=== PATIENT | male | born 1965 | race Caucasian/White ===

== ENCOUNTER 2018-07-25 00:50 | Emergency (ER) | payer OTHER, SELFPAY ==
[2018-07-25 00:51] VITALS: BP 144/86; PULSE 90; RESP 20; TEMP 36.8; O2SAT 100; BMI 31.8
--- NOTE | 2018-07-25 01:08 | EKG12_ITS ---
Test Reason : CP Blood Pressure : / mmHG Vent. Rate : 090 BPM Atrial Rate : 090 BPM P-R Int : 178 ms QRS Dur : 090 ms QT Int : 378 ms P-R-T Axes : 056 044 017 degrees QTc Int : 462 ms Normal sinus rhythm Normal ECG Confirmed by CURTIS LAMBERT, KARLY ([id number]), scientific publications editor PASHA CUENCA ([id number]) on 07/28/2018 9:37:10 AM Referred By: FABIENNE Confirmed By:KARLY ACEVEDO MD
--- NOTE | 2018-07-25 01:08 | RAD_ITS ---
STUDY: X-RAY CHEST REASON FOR EXAM: Male, 52 years old. Chest pain and pressure TECHNIQUE: 2 views COMPARISON: None. FINDINGS: The central pulmonary vascular markings are prominent bilaterally. Pulmonary hypertension is suspected. The heart is slightly enlarged. An ICD is in place. There are no pleural effusions. The lungs are clear. Normal visualized thoracic spine. Normal visualized ribs, clavicles, and shoulders. There is no demonstrated abnormality of the visualized soft tissue structures of the upper abdomen. RAD/Chest PA and Lateral IMPRESSION: No acute findings in the lungs. Suspicion of pulmonary hypertension Electronically Signed: Bruce Rossi MD at 1:43 EST Tel , Service support ,
[2018-07-25 01:11] VITALS: O2SAT 96
--- NOTE | 2018-07-25 01:11 | ED.DCSUM_ITS ---
- ER Visit Summary Date of Service: 07/25/18 Chief Complaint: Chest pressure History of Present Illness: The patient is a 52 M who presents for intermittent chest pressure for 2 weeks. Patient states he has been having episodes that last 20-30 minutes, described as a pressure across the entire chest without radiation into the arms, back, abdomen, neck. Patient's listened while he was having an episode tonight, and noted that his heart sounded irregular, like heart beats on top of another one. Patient states he has felt generally fatigued and weak for the last 2 weeks. He has had tremulousness and family note he has lost weight. He has no other complaints. He does have a history of coronary artery disease and myocardial infarction, with an ICD and pacer implanted from [employer]. He takes aspirin and Effient daily. No tobacco use or heavy alcohol use. Patient is currently asymptomatic. Physical Examination: Vital signs: afebrile, hemodynamically stable, no hypoxia on room air General: well nourished, well developed, in no distress Skin: warm, dry, no rash, no pallor HEENT: normocephalic and atraumatic; PERRL, EOMI, moist mucous membranes Cardiovascular: regular rate and rhythm without murmurs, no peripheral edema, 2+ pulses all distal extremities Respiratory: No increased work of breathing, lungs are clear to auscultation bilaterally, no rales, rhonchi or wheezing Abdominal: Abdomen is soft, nontender with normoactive bowel sounds, no guarding or rebound, no masses MSK: Moves all extremities, no deformities, normal strength Neuro: Awake and alert, oriented ?4. No facial droop, sensation and motor function intact and symmetric Test Results: Abnormal Lab Results 07/25/18 07/25/18 07/25/18 00:58 00:58 00:58 WBC 6.2 RBC 4.25 L Hgb 12.6 L Hct 38.1 L MCV 89.6 MCH 29.6 MCHC 33.1 RDW 12.3 RDW Differential 39.5 Plt Count 240 MPV 10.8 Immature Gran % (Auto) 0.200 Neut % (Auto) 58.1 Lymph % (Auto) 25.6 [place] % (Auto) 13.5 H Eos % (Auto) 2.3 Baso % (Auto) 0.3 Absolute Neuts (auto) 3.6 Absolute Lymphs (auto) 1.58 Total Counted Not Reportable PT 15.0 H INR 1.2 APTT 29.7 Sodium 139 Potassium 3.8 Chloride 106 Carbon Dioxide 26.0 Anion Gap 7 BUN 22 H Creatinine 1.18 Estim Creat Clear Calc 77.99 Est GFR (MDRD) Af Amer 83 Est GFR (MDRD) Non-Af 69 BUN/Creatinine Ratio 18.6 Glucose 106 Calcium 8.6 Magnesium 2.0 Troponin I < 0.015 TSH < 0.01 L Free T4 07/25/18 00:58 WBC RBC Hgb Hct MCV MCH MCHC RDW RDW Differential Plt Count MPV Immature Gran % (Auto) Neut % (Auto) Lymph % (Auto) [place] % (Auto) Eos % (Auto) Baso % (Auto) Absolute Neuts (auto) Absolute Lymphs (auto) Total Counted PT INR APTT Sodium Potassium Chloride Carbon Dioxide Anion Gap BUN Creatinine Estim Creat Clear Calc Est GFR (MDRD) Af Amer Est GFR (MDRD) Non-Af BUN/Creatinine Ratio Glucose Calcium Magnesium Troponin I TSH Free T4 5.69 H Clinical Impression(s) from Imaging Studies Chest X-Ray 07/25/18 01:08 IMPRESSION: No acute findings in the lungs. Suspicion of pulmonary hypertension Electronically Signed: Bruce Rossi MD at 1:43 EST Tel , Service support , Medications Given Discontinued Medications Aspirin (Aspirin, Baby) 324 mg PO X1 STA Stop: 07/25/18 01:09 Last Admin: 07/25/18 01:16 Dose: 324 mg Sodium Chloride () 1,000 mls @ 1,000 mls/hr IV .Q1H ONE Stop: 07/25/18 02:07 Last Admin: 07/25/18 01:17 Dose: 1,000 mls/hr Emergency Department Course and Treatment: Patient was given dose of aspirin. He is currently asymptomatic. Pacer/ICD interrogation was performed and showed episodes of nonsustained V. tach below the threshold of ICD firing. These results are consistent with patient's baseline condition, and there are no changes from his prior interrogation in June. Patient's troponin was within normal limits. No electrolyte or renal derangements, significant anemia or leukocytosis. TSH was checked given the complaints of fatigue, weakness and the description of patient's irregular heartbeat during these episodes of him feeling his chest discomfort. TSH was less than 0.01. A free T4 was checked and was significantly elevated at 5.69. Patient's EKG showed a sinus rhythm without ischemic changes. Patient had no ectopy noted during his workup and remained asymptomatic the whole time. Patient's symptoms sound consistent with palpitations, and this in conjunction with his other symptoms sounds consistent with hyperthyroidism. Patient is to follow-up within 1 week with his primary care doctor for reevaluation and further workup of hyperthyroidism. Patient is on amiodarone, and we discussed that he may need to follow-up with his technology administrator as well. Patient was minimal to this plan and was discharged home with return precautions. Treatment Plan: [] Disposition: [] Impression: Hyperthyroidism This note was generated with [employer] dictation software. It may contain incorrect words, spelling, and punctuation that were not noted in review of the chart prior to signing ED Disposition - Plan for ED Patient: Disposition: Home or Assisted Living Chief Complaint: Chest Pain Instructions: ED Hyperthyroidism, ED Palpitations Referrals: Clark Workman MD [Primary Care Provider] - 3-5 Days Additional Instructions: Your thyroid hormone (T4) is high, and your thyroid stimulating hormone (TSH) is low. This indicates that you have hyperthyroidism, which may be causing you to have palpitations, weight loss, fatigue, weakness and jitteriness. Please follow-up with your family doctor as soon as possible for further evaluation of your thyroid. You may also need to follow-up with your technology administrator to see if your amiodarone may be contributing to the high thyroid function. If you have any further concerns, please return to the emergency department immediately for another evaluation.
[2018-07-25] MEDS: Aspirin 81 MG TAB.CHEW 324 MG PO (01:16)
[2018-07-25] MEDS: 0.9% Normal Saline 1,000 ML 1000 ML IV (01:17)
[2018-07-25 01:19] LABS: Absolute Lymphocyte Count 1.58 X10^3/ul (0.83-4.51); Absolute Neutrophil Count 3.6 X10^3/uL (2.0-7.7); Basophil# 0.02 X10^3/uL; Basophil% 0.3 % (0-1); Eosinophil# 0.14 X10^3/uL; Eosinophils% 2.3 % (0-5); Hematocrit 38.1 % (40-54); Hemoglobin 12.6 g/dl (13.0-16.5); Lymphocyte # 1.58 X10^3/ul (4.0); Lymphocyte % 25.6 % (19-41); Mean Corp Hgb Conc 33.1 g/gl (32-36); Mean Corpuscular Hgb 29.6 pg (27.0-32.0); Mean Corpuscular Volume 89.6 fL (80-94); Mean Platelet Vol. 10.8 fl (6.2-12.0); Monocyte# 0.83 X10^3/uL; Monocyte% 13.5 % (0-10); Neutrophil # 3.59 X10^3/uL (2.7-7.7); Neutrophil % 58.1 % (47-70); POSITIVE COUNT NO; POSITIVE DIFFERENTIAL NO; POSITIVE MORPHOLOGY NO; Platelet Count 240 K/mm3 (150-450); RBC Distribution Width CV 12.3 % (11.6-14.6); RBC Distribution Width SD 39.5 fl (35.1-43.9); Red Blood Count 4.25 M/mm3 (4.6-6.2); White Blood Count 6.2 K/mm3 (4.4-11.0)
[2018-07-25 01:21] LABS: International Normalized Ratio 1.2
[2018-07-25 01:22] LABS: Partial Thromboplast Time 29.7 Seconds (24.1-36.2)
[2018-07-25 01:55] VITALS: BP 117/69; PULSE 79; RESP 16; O2SAT 97
[2018-07-25 02:24] LABS: Anion Gap 7 (5-15); BUN 22 mg/dL (7-18); BUN/Creat Ratio 18.6 RATIO (10-20); Calcium,Total 8.6 mg/dL (8.5-10.1); Chloride 106 mmol/L (98-107); Creatinine, Serum 1.18 mg/dL (0.70-1.30); EST Glomerular Filtration Rate 69 mL/min (>60); Est Glom Filt Rate - Afr Amer 83 mL/min (>60); Estimated Creatinine Clearance 77.99 ml/min; Glucose 106 mg/dL (74-106); Potassium 3.8 mmol/L (3.5-5.1); Sodium Level 139 mmol/L (136-145); Thyroid Stim Hormone (TSH) < 0.01 uIU/mL (0.358-3.74)
[2018-07-25 02:37] VITALS: BP 113/70; PULSE 76; RESP 16; O2SAT 94
--- NOTE | 2018-07-25 02:51 | ED.RN ---
[facility] FOR REPORT INFORMATION
[2018-07-25 03:00] LABS: T4 Free Direct 5.69 ng/dL (0.76-1.46)
[2018-07-25 03:05] VITALS: BP 111/76; PULSE 74; RESP 16; O2SAT 94
--- NOTE | 2018-07-25 03:29 | PCM.HP.STD ---
Problem List (1) S/P implantation of automatic cardioverter/defibrillator (AICD) Status: Chronic (2) CAD (coronary artery disease) Status: Chronic Qualifiers: Coronary Disease-Associated Artery/Lesion type: unspecified vessel or lesion type [place] vs. transplanted heart: unspecified whether [place] or transplanted heart Associated angina: angina presence unspecified Qualified Code(s): I25.10 - Atherosclerotic heart disease of [place] coronary artery without angina pectoris (3) HLD (hyperlipidemia) Status: Chronic Qualifiers: Hyperlipidemia type: unspecified Qualified Code(s): E78.5 - Hyperlipidemia, unspecified (4) History of [place] (myocardial infarction) Status: Chronic (5) HTN (hypertension) Status: Chronic Qualifiers: Hypertension type: essential hypertension Qualified Code(s): I10 - Essential (primary) hypertension (6) Status cardiac pacemaker Status: Chronic (7) Chest pain Status: Acute Qualifiers: Chest pain type: unspecified Qualified Code(s): R07.9 - Chest pain, unspecified History of Present Illness Date of Admission: 07/25/18 Chief Complaint: Chest pain The patient is a 52 year old M [] Past Medical History Past Medical History (Chronic Problems): Chronic Problems CAD (coronary artery disease) (Chronic) HLD (hyperlipidemia) (Chronic) History of [place] (myocardial infarction) (Chronic) HTN (hypertension) (Chronic) Status cardiac pacemaker (Chronic) S/P implantation of automatic cardioverter/defibrillator (AICD) (Chronic) Allergies Penicillins Allergy (Verified 07/25/18 00:57) Rash Home Medications: Ambulatory Orders Medication Instructions Recorded Amiodarone HCl 200 mg PO DAILY 07/03/16 Aspirin E.C. [Ecotrin] 81 mg PO DAILY@0800 07/03/16 Atorvastatin Calcium [Lipitor] 40 mg PO QHS 07/03/16 Flaxseed Oil [[place]-3 Flaxseed Oil] 1,000 mg PO DAILY 07/03/16 Multivitamins,Therapeutic 1 tablet PO DAILY 07/03/16 [Multivitamin] [place]-3 Fatty Acids/Fish Oil [Fish 1 each PO DAILY 07/03/16 Oil 1,000 mg Capsule] Prasugrel Hydrochloride [Effient] 10 mg PO DAILY 07/03/16 Smoking Status: Never smoker Patient Problems: Active and Suspected Problems Chest pain (Acute) - Physical Exam Vital Signs Temp Pulse Resp BP Pulse Ox 98.2 F 74 16 111/76 94 07/25/18 00:51 07/25/18 03:05 07/25/18 03:05 07/25/18 03:05 07/25/18 03:05 Oxygen Delivery Method Room Air Weight: 228 lb 2.855 oz Body Mass Index (BMI) 31.8 Laboratory Tests Past 24 Hrs 07/25/18 07/25/18 07/25/18 00:58 00:58 00:58 WBC 6.2 RBC 4.25 L Hgb 12.6 L Hct 38.1 L MCV 89.6 MCH 29.6 MCHC 33.1 RDW 12.3 RDW Differential 39.5 Plt Count 240 MPV 10.8 Immature Gran % (Auto) 0.200 Neut % (Auto) 58.1 Lymph % (Auto) 25.6 [place] % (Auto) 13.5 H Eos % (Auto) 2.3 Baso % (Auto) 0.3 Absolute Neuts (auto) 3.6 Absolute Lymphs (auto) 1.58 Total Counted Not Reportable PT 15.0 H INR 1.2 APTT 29.7 Sodium 139 Potassium 3.8 Chloride 106 Carbon Dioxide 26.0 Anion Gap 7 BUN 22 H Creatinine 1.18 Estim Creat Clear Calc 77.99 Est GFR (MDRD) Af Amer 83 Est GFR (MDRD) Non-Af 69 BUN/Creatinine Ratio 18.6 Glucose 106 Calcium 8.6 Magnesium 2.0 Troponin I < 0.015 TSH < 0.01 L Free T4 07/25/18 00:58 WBC RBC Hgb Hct MCV MCH MCHC RDW RDW Differential Plt Count MPV Immature Gran % (Auto) Neut % (Auto) Lymph % (Auto) [place] % (Auto) Eos % (Auto) Baso % (Auto) Absolute Neuts (auto) Absolute Lymphs (auto) Total Counted PT INR APTT Sodium Potassium Chloride Carbon Dioxide Anion Gap BUN Creatinine Estim Creat Clear Calc Est GFR (MDRD) Af Amer Est GFR (MDRD) Non-Af BUN/Creatinine Ratio Glucose Calcium Magnesium Troponin I TSH Free T4 5.69 H Assessment/Plan All Active Problems Chest pain (Acute) Screening for colon cancer (Acute)
--- NOTE | 2018-07-25 03:39 | HP.PCM_ITS ---
Problem List (1) S/P implantation of automatic cardioverter/defibrillator (AICD) Status: Chronic (2) CAD (coronary artery disease) Status: Chronic Qualifiers: Coronary Disease-Associated Artery/Lesion type: unspecified vessel or lesion type [place] vs. transplanted heart: unspecified whether [place] or transplanted heart Associated angina: angina presence unspecified Qualified Code(s): I25.10 - Atherosclerotic heart disease of [place] coronary artery without angina pectoris (3) HLD (hyperlipidemia) Status: Chronic Qualifiers: Hyperlipidemia type: unspecified Qualified Code(s): E78.5 - Hyperlipidemia, unspecified (4) History of [place] (myocardial infarction) Status: Chronic (5) HTN (hypertension) Status: Chronic Qualifiers: Hypertension type: essential hypertension Qualified Code(s): I10 - Essential (primary) hypertension (6) Status cardiac pacemaker Status: Chronic (7) Chest pain Status: Acute Qualifiers: Chest pain type: unspecified Qualified Code(s): R07.9 - Chest pain, unspecified History of Present Illness Date of Admission: 07/25/18 Chief Complaint: Chest pain The patient is a 52 year old M [] Past Medical History Past Medical History (Chronic Problems): Chronic Problems CAD (coronary artery disease) (Chronic) HLD (hyperlipidemia) (Chronic) History of [place] (myocardial infarction) (Chronic) HTN (hypertension) (Chronic) Status cardiac pacemaker (Chronic) S/P implantation of automatic cardioverter/defibrillator (AICD) (Chronic) Allergies Penicillins Allergy (Verified 07/25/18 00:57) Rash Home Medications: Ambulatory Orders Medication Instructions Recorded Amiodarone HCl 200 mg PO DAILY 07/03/16 Aspirin E.C. [Ecotrin] 81 mg PO DAILY@0800 07/03/16 Atorvastatin Calcium [Lipitor] 40 mg PO QHS 07/03/16 Flaxseed Oil [[place]-3 Flaxseed Oil] 1,000 mg PO DAILY 07/03/16 Multivitamins,Therapeutic 1 tablet PO DAILY 07/03/16 [Multivitamin] [place]-3 Fatty Acids/Fish Oil [Fish 1 each PO DAILY 07/03/16 Oil 1,000 mg Capsule] Prasugrel Hydrochloride [Effient] 10 mg PO DAILY 07/03/16 Smoking Status: Never smoker Patient Problems: Active and Suspected Problems Chest pain (Acute) - Physical Exam Vital Signs Temp Pulse Resp BP Pulse Ox 98.2 F 74 16 111/76 94 07/25/18 00:51 07/25/18 03:05 07/25/18 03:05 07/25/18 03:05 07/25/18 03:05 Oxygen Delivery Method Room Air Weight: 228 lb 2.855 oz Body Mass Index (BMI) 31.8 Laboratory Tests Past 24 Hrs 07/25/18 07/25/18 07/25/18 00:58 00:58 00:58 WBC 6.2 RBC 4.25 L Hgb 12.6 L Hct 38.1 L MCV 89.6 MCH 29.6 MCHC 33.1 RDW 12.3 RDW Differential 39.5 Plt Count 240 MPV 10.8 Immature Gran % (Auto) 0.200 Neut % (Auto) 58.1 Lymph % (Auto) 25.6 [place] % (Auto) 13.5 H Eos % (Auto) 2.3 Baso % (Auto) 0.3 Absolute Neuts (auto) 3.6 Absolute Lymphs (auto) 1.58 Total Counted Not Reportable PT 15.0 H INR 1.2 APTT 29.7 Sodium 139 Potassium 3.8 Chloride 106 Carbon Dioxide 26.0 Anion Gap 7 BUN 22 H Creatinine 1.18 Estim Creat Clear Calc 77.99 Est GFR (MDRD) Af Amer 83 Est GFR (MDRD) Non-Af 69 BUN/Creatinine Ratio 18.6 Glucose 106 Calcium 8.6 Magnesium 2.0 Troponin I < 0.015 TSH < 0.01 L Free T4 07/25/18 00:58 WBC RBC Hgb Hct MCV MCH MCHC RDW RDW Differential Plt Count MPV Immature Gran % (Auto) Neut % (Auto) Lymph % (Auto) [place] % (Auto) Eos % (Auto) Baso % (Auto) Absolute Neuts (auto) Absolute Lymphs (auto) Total Counted PT INR APTT Sodium Potassium Chloride Carbon Dioxide Anion Gap BUN Creatinine Estim Creat Clear Calc Est GFR (MDRD) Af Amer Est GFR (MDRD) Non-Af BUN/Creatinine Ratio Glucose Calcium Magnesium Troponin I TSH Free T4 5.69 H Assessment/Plan All Active Problems Chest pain (Acute) Screening for colon cancer (Acute)
--- NOTE | 2018-07-25 03:53 | ED.DEP ---
ED Disposition - Plan for ED Patient: Disposition: Home or Assisted Living Chief Complaint: Chest Pain Instructions: ED Hyperthyroidism, ED Palpitations Referrals: Clark Workman MD [Primary Care Provider] - 3-5 Days Additional Instructions: Your thyroid hormone (T4) is high, and your thyroid stimulating hormone (TSH) is low. This indicates that you have hyperthyroidism, which may be causing you to have palpitations, weight loss, fatigue, weakness and jitteriness. Please follow-up with your family doctor as soon as possible for further evaluation of your thyroid. You may also need to follow-up with your personal financial counselor to see if your amiodarone may be contributing to the high thyroid function. If you have any further concerns, please return to the emergency department immediately for another evaluation.
[2018-07-25 04:02] VITALS: BP 100/65; PULSE 72; RESP 16; O2SAT 96
== END 2018-07-25 04:09 | disposition home or self-care (01) ==
PROVIDERS: Emergency Provider Emergency Medicine; Family Provider Family Medicine; PCP Family Medicine
DX: E05.90 Thyrotoxicosis, unspecified without thyrotoxic crisis or storm (principal); I25.10 Atherosclerotic heart disease of native coronary artery without angina pectoris; I25.2 Old myocardial infarction; Z95.810 Presence of automatic (implantable) cardiac defibrillator; Z79.82 Long term (current) use of aspirin; Z79.899 Other long term (current) drug therapy
CPT/HCPCS: 71046; 80048; 83735; 84439; 84443; 84484; 85025; 85610; 85730; 93005; 96360; 99285; J7030; A4216

== ENCOUNTER → 2025-08-09 | Outpatient (CLI) | payer OTHER, SELFPAY ==
--- NOTE | 2025-08-09 13:55 | PCM.CR.HP2 ---
CR - History & Physical General Arrival date:: 08/09/25 Arrival time:: 13:55 Date of Referral:: 07/22/25 Date of CR Evaluation:: 08/09/25 Referring Physician: Dr. Dwyer Primary Diagnosis: CABG History of Present Cardiac Event Onset Date Coronary Artery Bypass Graft:: Yes (onset06/03/2025) Vessel: LEMON-Diag, SVG-OM1, Radial-PDA Medications Ambulatory Orders ?Medication ?Instructions ?Recorded amiodarone 200 mg tablet 200 mg PO DAILY 07/03/16 aspirin 81 mg tablet,delayed 81 mg PO DAILY@0800 07/03/16 release atorvastatin 40 mg tablet 40 mg PO QHS 07/03/16 flaxseed oil 1,000 mg capsule 1,000 mg PO DAILY 07/03/16 ([place]-3 Flaxseed Oil) multivitamin with folic acid 400 1 tab PO DAILY 07/03/16 mcg tablet ([place]) omega-3 fatty acids-fish oil 340 1 ea PO DAILY 07/03/16 mg-1,000 mg capsule (Fish Oil) prasugrel HCl 10 mg tablet 10 mg PO DAILY 07/03/16 Allergies Allergies Penicillins Allergy (Verified 07/25/18 00:57) Rash Sleep Disorder Evaluation Hx of Sleep Apnea: No Do you snore loudly (louder than talking or can be heard through closed doors)?: No Do you often feel tired/ fatigued/ sleepy during daytime?: No Has anyone observed you stop breathing during sleep?: No History of Hypertension (for STOP score): Yes STOP Results: Negative Advanced Directives Advanced Directives Do you have a Healthcare Power of Delicatessen Clerk?: Yes Living Will: Yes Advance Directives Information Provided: No Advance Directives on File: Yes DNR Order?:: No Past Medical History Covid-19 Screening Physicial Symptoms Other Clinical Concerns Exposure Risk Pertinent Comorbidities Has a serious heart condition:: Yes Social History Smoking History Smoking Status: Former smoker Years Smokin (stopped in 2013) Alcohol Use Alcohol Usage: Yes (rare) Occupation Occupation (List type of work in comments):: Employed Hours worked per day:: 9 Social Environment Status Marital Status: Current Living Arrangements Living Environment:: Spouse Children How many children do you have?: 2 Do any of your children live nearby?: Yes Safety Do you feel safe in your surroundings?: Yes Assistance Do you need any assistance at home?: no Review of Systems Review of Systems Hints Review of Present Symptoms: Reports Appetite - Normal, Appetite - Special Diet and Sleep - Normal; Denies Shortness of Breath at Rest, Shortness of Breath with Exertion, PVD, Operative Discomfort, Angina, Wound Healing, Dizziness/Lightheadedness, Fatigue, Heart Arrhythmia/Irregularities or Sexual Changes Pain Is Patient Pain Free?: Yes Risk Factor Assessment Chief Complaint Chief Complaint: CABG Vital Signs Pulse Ox: 97 Blood Pressure: 100/70 Pulse Pulse Rate: 61 Pulse Rhythm: Regular Obesity Height: 5 ft 11 in Weight:: 225 lb Weight in Pounds: 225.0 lbs Body Mass Index (BMI): 31.4 Nutritional Referral for Obesity: No Physical Inactivity Physical Inactivity: Reg Exercise 30 min/day Risk Stratification Risk Guidelines: Moderate Risk: Risk Factor for Smoking, Risk Factor for Diabetes, Risk Factor for Obesity, Risk Factor for Sedentary Lifestyle and Risk Factor for Depression and Highest Risk: Risk Factor for Dyslipidemia and Risk Factor for Hypertension For Smoking Smoking Risk Guidelines For Dyslipidemia Dyslipidemia Risk Guidelines For Diabetes Mellitus Diabetes Risk Guidelines For Obesity/Overweight Obesity/Overweight Risk Guidelines For Hypertension Hypertension Risk Guidelines For Sedentary Lifestyle Sedentary Lifestyle Risk Guidelines For Depression Depression Risk Guidelines Motivation Motivation to Participate What do you see as barriers to successfully being able to complete the program?: nothing Are there issues you are dealing with that will interfere with completing the program?: no Do you have a spouse or signficant other, family or friends who will help support you to complete the program?: yes
[2025-08-09 14:16] VITALS: BP 100/70; PULSE 61; O2SAT 97
--- NOTE | 2025-08-09 14:38 | CR.ITP_ITS ---
Diagnosis General Information Admitting Diagnosis: CABG Personal Learning Style:: Audio/Visual Barriers to Learning: No Barriers Stage of change r/t lifestyle modifications:: Contemplation Gave educational material for:: Treating Heart Disease, How The Heart Works, What it means to have Heart Disease, How Coronary Artery Disease is Diagnosed, Heart Procedures, What Heart Medications Do, Risk Factors & Modifications, Living an Active Life, Nutrition, Emotions & Heart Disease, Stress Management & Relaxation and Sleep Disorders & Heart Disease Education/Goals Cardiac Rehabilitation Goals Personal Goals: Initial Assessment: Improve energy level, Participate in home exercise program, Improve muscle strength and endurance, Improve diet and eating habits (eat healthier) and Control risk factors (learn risk factor modification) Scale for measuring improvement of personal goals Diagnosis & Disease Process Outcomes/Goals: Pt IDs own risk factors & lifestyle modifications by Session 10, Verbalizes symptoms of angina & response by session 3., Pt independently manages and Other Additional Outcomes/Goals: Plan/Interventions: Assist Pt to ID & engage in lifestyle modification to reduce CVD risk, Instruct on individual risk factors, Review symptoms of angina & emergency actions, Review secondary diagnosis & identify educational needs. and Other see comment 30 day Reassessments:: Not Met 30 day Reassessments:: Not Met 30 day Reassessments:: Not Met 30 day Reassessments:: Not Met Final Reassessments:: Not Met Safety Referral to Physical Therapy: No Referral to [facility] Case Management: No Fall Risk Assessed:: Yes Assistive Devices:: None Exercise - Initial Assessment Visit Date of Eval: 08/09/25 (initial eval) Mets: Pre-: >3 METS for 30 minutes by discharge, >5 METS for 30 minutes by discharge, >7 METS for 30 minutes by discharge and Unable to meet goal due to: (see comment below) Physician Prescribed Exercise Modalities: Treadmill, Schwinn Airdyne AD-7, SciFit Stepper, SciFit Pro-II Ergometer and SciFit Lateral [place] Frequency: 3x/week for 12 weeks [36 sessions] Intensity: 60-80% of age predicted maximum heart rate reserve Duration: 30 - 45 minutes Current METSs:: 3 Target Heart Rate:: 96-121 Resting Blood Pressure: 100/70 EKG Type: A-fib w/ RVR Outcomes & Goals Goals:: Verbalizes understanding of THR, RPE & goal METS by session 6, Documents in home exercise log/reports 30 min aerobic 5 day/wk by DC, Demonstrates accurate pulse taking by DC and Other additional outcome/goals: see below Intervention & Plan Exercise Program Goals: Instruct on personal THR & RPE, Instruct on MET level & personal MET goal, Show patient to take own pulse /validate performance until accurate, Instruct on home exercise and Other additional plan/int Physical Activity Home Exercise Physical Activity - Home Exercise: Safe Exercise, Warm-up, Self-monitoring, Cool-Down, Home Exercise > 30 min Daily and Sitting Time <3 hours/daily Outcomes & Goals Outcomes/Goals: Demonstrates correct Warm-up/exercise Cool-Down (S3) if = 2.5 METs, Verbalizes symptoms of exercise intolerance by Session 3 (S3), Demonstrate safe equipment use (S3) & follows exercise prescrition (6) and Other: See below Intervention & Plan Plan/Intervention: Instruct warm-up & cool-down if exercising at > 2 METs, Instruct on symptoms of exercise intolerance & actions to take, Instruct & monitor on saf, Assess intial functional capacity & safety risk and Other See below Nutrition - Initial Assessment Program Goals Nutrition Program Goals Patient has diagnosis of Hyperlipidemia (ICD E78)?: Yes Visit Date of Eval: 08/09/25 (initial eval, Nutrition survey score of 1) Cholesterol/Lipids (Other Core Measures) Determine presence & major risk factors that modify LDL goal: Cigarette smoking, Hypertension or hypertensive medication, Low HDL cholesterol <40 mg/dL*, Family history of premature CHD in Male < 55 years: female <65 yearsFa and Age men > 45 years; women >/= 55 years Outcomes/Goals: Pt IDs own risk factors & lifestyle modifications by Session 10, Verbalizes symptoms of angina & response by session 3., Pt independently manages and Other Additional Outcomes/Goals: Intervention/Plan: Advocate for lipid panel cholesterol medication if applicable, Instruct on personal lipid levels & lipid goals/NCEP guidelines, Instruct on cholesterol and Other additional plan/int Diabetes (Other Core Measures) Diabetes Type: Not Applicable Weight Mgt (Other Care) Height: 5 ft 11 in Weight:: 225 lb BMI: 31.4 Diagnosis Overweight/Obesity BMI> 30% ICD-10 E66: No Outcomes/Goals: Pt sets, maintains & shows weight loss goal & trend during rehab and Other additional outcomes/goals Intervention/Plan: Instruct on ideal BMI & set weight loss goal w/patient, Assist pt to ID & incorporate diet changes for weight loss by S9, Refer to Structured Weight Loss program as appropriate, Encourage goal of using 250- 300dcal per session for weight loss and Other additional plan/interventions Healthy Eating Habits Will attend diet classes:: Yes Intervention/Plan:: Assess current eating habits and Other Additional plan/interventions Education Gave educational materials for:: Signs & symptoms of hypoglycemia, Signs & symptoms of hyperglycemia, Relate diabetes to coronary artery disease and Healthy eating Core - Initial Assessment Visit Date of Eval: 08/09/25 (initial eval) Medication Compliance Preventative Medication(s):: Aspirin, Statin/lipid and Beta sabine H/O mental health issues: depression, anxiety, or addiction?: No Doesn?t believe in the benefits of treatment?: No Believes medications are unnecessary or harmful?: No Has a concern about medication side effects?: No Expresses concern over the cost of medications?: No Outcomes/Goals: Verbalizes medications,desired effect & common side effects @ DC, Pt self-reports following medication regimen, Keeps card in wallet w/medications listed by DC and Other additional outcome/goals: Interventions/plans: Instruct on medication effects & side effects, Review medication list w/patient every two weeks, Instruct importance of taking meds as ordered & assist problem solving and Other additional Tobacco Use Tobacco Use: Non-smoker How long ago did you quit using tobacco products?: Greater than or equal to 6 months ago Years Smokin (stopped in 2013) Outcomes/Goals: Smoking cessation achieved or maintained by discharge, Identify aids/strategies for achieving smoking cessation by session 6 and Other additional outcome/goals Interventions/plan: Instruct on effects of smoking & provide smoking cessation resource, Assist pt to set quit date & provide encouragement, Assist pt to develop strategies to achieve/maintain quit date, Assist pt w/nicotine replacement & medication for cessation success and Other additional plan/interventions Hypertension Hypertension Diagnosis:: Hypertension ICD-10 I10 Resting Blood Pressure:: 100/70 [place] [employer] Hypertension Guidelines Outcomes/Goals: Able to verbalize/achieve optimal blood pressure <130/80, Incorporates diet changes & exercise for blood pressure control by DC and Other additional outcomes/goals Interventions/plan: Instruct on optimal blood pressure, hypertension & medications, Instruct on effects of sodium, alcohol, stress, exercise &hypertension and Other additional plan/interventions Tobacco Cessation Referral Smoking Cessation Referral:: No Individual Education/Counseling:: No Education Schedule Given:: Yes Psychosocial - Initial Assess VIsit Date of Eval: 08/09/25 (initial eval) History of previous Mental disease:: No Psychosocial Test Tool Used:: [employer] QOL Cardiac and PHQ-9 Questionnaire phq-9 Severity See PHQ-9 Score: 3 Referral to Behavioral Health PS - Interventions: Yes: Attend Stress Management Classes Outcomes/Goals: See list Psychosocial Outcomes/Goals:: ID's personal stressors & 2 strategies to manage stress by discharge and Other Additional outcome/goals: Intervention/Plan: See List Interventions/Plan:: Assess stressors,coping strategies & signs of derpression on admission, Instruct/assist pt to develop coping & personal stress Mgt strategies, Refer to Behavioral Health if appropriate, Refer to Physician if appropriate, Instruct patient to recognize signs & symptoms of depression, Instruct patient to recog and Other additional plan/intervention Exercise - 30-day Assessment Physician Prescribed Exercise Modalities: Treadmill, Schwinn Airdyne AD-7, SciFit Stepper, SciFit Pro-II Ergometer and SciFit Lateral [place] Exercise - 60-day Assessment Physician Prescribed Exercise Modalities: Treadmill, Schwinn Airdyne AD-7, SciFit Stepper, SciFit Pro-II Ergometer and SciFit Lateral Adjunct Physical Education Instructor Exercise - 90-day Assessment Physician Prescribed Exercise Modalities: Treadmill, Schwinn Airdyne AD-7, SciFit Stepper, SciFit Pro-II Ergometer and SciFit Lateral Adjunct Physical Education Instructor Exercise - Final/Discharge Physician Prescribed Exercise Modalities: Treadmill, Schwinn Airdyne AD-7, SciFit Stepper, SciFit Pro-II Ergometer and SciFit Lateral [place] Frequency: 3x/week for 12 weeks [36 sessions] Intensity: 60-80% of age predicted maximum heart rate reserve Current METSs:: 3 Target Heart Rate:: 96-121 Nutrition - 30-Day Assessment Weight Mgt (Other Care) Height: 5 ft 11 in Weight:: 225 lb BMI: 31.4 Nutrition - 60-Day Assessment Weight Mgt (Other Care) Height: 5 ft 11 in Weight:: 225 lb BMI: 31.4 Core - 30-Day Assessment Tobacco Use Years Smokin (stopped in 2013) Core - Final Assessment Hypertension Resting Blood Pressure:: 100/70 [place] [employer] Hypertension Guidelines Core - 60-Day Assessment Hypertension Resting Blood Pressure:: 100/70 [place] [employer] Hypertension Guidelines Psychosocial - 30-Day Assess Referral to Behavioral Health PS - Interventions: Yes: Attend Stress Management Classes Psychosocial - 60-Day Assess Referral to Behavioral Health PS - Interventions: Yes: Attend Stress Management Classes Psychosocial - 90-Day Assess Referral to Behavioral Health PS - Interventions: Yes: Attend Stress Management Classes Psychosocial - Final Assessmen Psychosocial Test phq-9 Severity See PHQ-9 Score: 3 Referral to Behavioral Health PS - Interventions: Yes: Attend Stress Management Classes Nutrition - 90-Day Assessment Weight Mgt (Other Care) Height: 5 ft 11 in Weight:: 225 lb BMI: 31.4 Nutrition - Final Assessment Program Goals Patient has diagnosis of Hyperlipidemia (ICD E78)?: Yes Weight Mgt (Other Care) Height: 5 ft 11 in Weight:: 225 lb BMI: 31.4
[2025-08-09 14:47] VITALS: BP 100/70; BMI 31.4
[2025-08-09 14:48] VITALS: BMI 31.4
== END | disposition home or self-care (01) ==
PROVIDERS: PCP Family Medicine; Referring Provider Thoracic Surgery (Cardiothoracic Vascular Surgery); Visit Provider Thoracic Surgery (Cardiothoracic Vascular Surgery)
DX: Z95.1 Presence of aortocoronary bypass graft (principal)

== ENCOUNTER 2025-09-01 08:00 | Outpatient (RCR) | payer OTHER, SELFPAY ==
[2025-08-09 14:47] VITALS: BMI 31.4
== END 2025-09-01 23:59 ==
LOC: CR 08:00
PROVIDERS: PCP Family Medicine; Referring Provider Thoracic Surgery (Cardiothoracic Vascular Surgery); Visit Provider Thoracic Surgery (Cardiothoracic Vascular Surgery)
DX: Z95.1 Presence of aortocoronary bypass graft (principal)
CPT/HCPCS: 93798